=== PATIENT | male | born 1955 | race Hispanic/Latino ===

== ENCOUNTER → 2020-01-28 | Day surgery (SDC) | payer MEDICARE ==
[2020-01-24 11:48] LABS: BASOPHILS % 0.6 % (0.0-1.0); EOSINOPHILS # (AUTO) 0.2 (0.0-0.4); EOSINOPHILS % 2.1 % (0.0-6.0); HEMATOCRIT 41.6 % (38.2-49.6); HEMOGLOBIN 14.3 g/dL (14.0-18.0); LYMPHOCYTES # (AUTO) 1.5 (1.0-3.2); LYMPHOCYTES % 21.3 % (18.0-39.1); MEAN CORPUSCULAR HGB CONC 34.4 g/dL (31-35); MEAN CORPUSCULAR VOLUME 98.8 fL (81-99); MONOCYTES # (AUTO) 0.5 (0.2-0.8); MONOCYTES % 7.6 % (4.4-11.3); NEUTROPHILS # (AUTO) 4.8 (2.1-6.9); PLATELET COUNT 271 x10e3/uL (140-360); RED BLOOD COUNT 4.21 x10e6/uL (4.3-5.7); RED CELL DISTRIBUTION WIDTH 12.5 % (11.7-14.4)
--- NOTE | 2020-01-24 12:00 | NUR ---
Checked patient's temperature 98.1F via skin probe. Patient denies being out of the country or state in the at 14 days. Patient denies being around anyone who has been exposed or diagnosed with COVID-19 in the last 14 days. Patient denies fever, cough or new onset shortness of breath.
[2020-01-24 12:10] LABS: ALANINE AMINOTRANSFERASE 31 IU/L (0-55); ALBUMIN 3.6 g/dL (3.5-5.0); ALKALINE PHOSPHATASE 66 IU/L (40-150); ANION GAP 11.3 mmol/L (8-16); BLOOD UREA NITROGEN 13 mg/dL (7-26); BUN/CREATININE RATIO 13 (6-25); CALCIUM 9.5 mg/dL (8.4-10.2); CARBON DIOXIDE 32 mmol/L (22-29); CHLORIDE 101 mmol/L (98-107); CREATININE, SERUM 1.01 mg/dL (0.72-1.25); EST GLOMERULAR FILTRATION RATE > 60 ML/MIN (60-); GLUCOSE 341 mg/dL (74-118); POTASSIUM 4.3 mmol/L (3.5-5.1); SODIUM 140 mmol/L (136-145)
[~2020-01-28] VITALS: Ht 160 cm; Wt 68.0 kg
[2020-01-28] VITALS (14 sets, daily range): BP systolic 112–172; BP diastolic 60–77
[~2020-01-28] MED LIST: ACETAMINOPHEN500 M1 PO; ALPRAZOLAM 0.5 MG TAB ONE; ASPIR 8181 MG PO; ASPIRIN 325 MG TAB ONE; BIVALRIUDIN 250 MG/VIAL VIAL IV ONE; CLOPIDOGREL75 MG PO; DIPHENHYDRAMINE HCL 25 MG CAP ONE; FENTANYL CITRATE/PF 100MCG/2 ML INJ ONE; GABAPENTIN400 MG PO; HEPARIN SOD/SOD CHLORIDE 2,000 ML ONE; IOPAMIDOL 370 MG/ML 200 ML INFUS..BTL INJ ONE; LIDOCAINE HCL 2% LOCAL 20 ML VIAL ONE; LISINOPRIL10 MG PO; METFORMIN HCL500 MG PO; MIDAZOLAM HCL 2 MG/2 ML VIAL ONE; PRASUGREL 10 MG TAB ONE; REVATIO20 MG PO; SIMVASTATIN20 MG PO; SODIUM CHLORIDE 0.9% 1000ML 1,000 ML ONE; SODIUM CHLORIDE 0.9% 50ML 50 ML ONE
--- OUTSIDE RECORDS SUMMARY | 2020-01-28 11:09 | XMS REPORT | Continuity of Care Document ---
Author Author [facility] [email or web address] Address [address] [address] Phone Care Team Providers Care Boiler Water Tester Name Role Phone Leonardo Perez Unavailable Unavailable Allergies, Adverse Reactions, Alerts Substance Reaction Status No Known Allergies Active Medications Medication Instructions Dosage Effective Dates (start - stop) Status Comments Metformin 1000mg Tablet TAKE 1 TABLET BY ORAL ROUTE 2 TIMES EVERY DAY WITH MORNING AND EVENING MEALS 1000 MG - Active lisinopril 10 mg tablet take 1 tablet by oral route every day 10 MG - Active simvastatin 20 mg tablet TAKE (1) TABLET BY MOUTH EVERY EVENING. - Active Tresiba FlexTouch U-100 insulin 100 unit/mL (3 mL) subcutaneous pen Inject 25 units SQ once daily - Active gabapentin 300 mg capsule take 2 capsule by oral route 3 times every day 600 MG - Active sildenafil 25 mg tablet take 1 tablet by oral route every day as needed approximately 1 hour before sexual activity 25 MG - Active Accu-Chek Xuan Plus Meter test 3 times daily (E11.65; insulin dependent) - Active Accu-Chek Xuan Plus test strips test 3 times daily (E11.65; insulin-dependent) - Active aspirin 81 mg tablet,delayed release take 1 tablet by oral route every day 81 MG - Active Pen Needle 32 gauge x 5/32" inject 1 by subcutaneous route every day 1 - Active metformin 1,000 mg tablet take 1 tablet by oral route 2 times every day with morning and evening meals 1000 MG - No Longer Active Problems Condition Effective Dates (start - stop) Clinical Status Comments Dyslipidemia - Active Type II diabetes mellitus uncontrolled - Active Benign hypertension - Active Procedures Procedure Date No information Results Test Name Date and Time Measure Units Reference Range Abnormal Flag Status Comments No information Advance Directives Directive Yes / No Effective Date File Name No information Encounters Encounter Description Practice Location Reason(s) For Visit Diagnoses Date Provider Providers Copied on Encounter [facility], [address], [place], [place], [address], tel:[phone] [facility] Rafael Patterson. [address], [place], [place], [address]. tel:[phone] Referring Provider: Anu Campbell [address], [place], [place], [address]. tel:[phone] [facility], [address], [place], [place], [address], tel:[phone] [facility] Type 2 diabetes mellitus with hyperglycemiaEssential (primary) hypertensionHyperlipidemia, unspecifiedOther spondylosis w/ radiculopathy of lumbar regionMale erectile dysfunction, unspecified Rafael Patterson. [address], [address], [place], [place], [address]. tel:[phone] Referring Provider: Anu Campbell [address], [place], [place], [address]. tel:[phone] [facility], [address], [place], [place], [address], tel:[phone] [facility] Other spondylosis w/ radiculopathy of lumbar region Rafael Patterson. [address], [place], [place], [address]. tel:[phone] Referring Provider: Anu Campbell [address], [place], [place], [address]. tel:[phone] [facility], [address], [place], [place], [address], tel:[phone] [facility] Type 2 diabetes mellitus with hyperglycemiaOther spondylosis w/ radiculopathy of lumbar region Rafael Patterson. [address], [address], [place], [place], [address]. tel:[phone] Referring Provider: Leonardo Hall, [address], [place], [place], [address]. tel:[phone] [facility], [address], [place], [place], [address], tel:[phone] [facility] Major depressive disorder, single episode, unspecifiedAdjustment disorder, unspecifiedAcute stress reaction Maribell Khan. [address], [place], [place], [address]. tel:[phone] Referring Provider: Blanche Taf[address] [place] [address], [place], [place], [address]. tel:[phone] [facility], [address], [place], [place], [address], tel:[phone] [facility] Major depressive disorder, single episode, unspecifiedAdjustment disorder, unspecifiedAcute stress reaction Maribell Khan. [address], [place], [place], [address]. tel:[phone] Referring Provider: Joel [address], [place], [place], [address]. tel:[phone] [facility], [address], [place], [place], [address], tel:[phone] [facility] Type 2 diabetes mellitus with hyperglycemiaEssential (primary) hypertensionHyperlipidemia, unspecifiedBody mass index (BMI) 25.0- 25.9, adultSciatica, right sideDepression Rafael Patterson. [address], [place], [place], [address]. tel:[phone] Referring Provider: Anu Campbell [employer], [place], [place], [address]. tel:[phone] [facility], [address], [place], [place], [address], tel:[phone] [facility] Body mass index (BMI) 26.0-26.9, adultPain in leg [facility], [address], [place], [place], [address], tel:[phone] [facility] Body mass index (BMI) 25.0-25.9, adultType 2 diabetes mellitus with hyperglycemiaEssential (primary) hypertensionHyperlipidemia, unspecified Rafael Patterson. [address] [employer] [address], [place], [place], [address]. tel:[phone] Referring Provider: Moises Campbell [employer] [address], [place], [place], [address]. tel:[phone] [facility], [address], [place], [place], [address], tel:[phone] [facility] Type 2 diabetes mellitus with hyperglycemiaEssential (primary) hypertensionHyperlipidemia, unspecifiedEncounter for screening for cancer of prostate [facility], [address], [place], [place], [address], tel:[phone] [facility] Body mass index (BMI) 25.0-25.9, adultType 2 diabetes mellitus with hyperglycemiaEssential (primary) hypertension Family History Family Member Diagnosis Age At Onset Sister Cancer, breast Father Immunizations Vaccine Date Status Comments No information Payers Payer name Insurance type Covered alliance party ID Authorization(s) [facility] [id number] Social History Type Description Quantity Date Captured Comments Sex Male Vital Signs Date / Time: Height Weight BMI Pulse Rate Blood Pressure Temperature Respiratory Rate Body Surface Area Head Circumference BMI percentile Pulse Ox Inhaled Ox No information Chief Complaint And Reason For Visit No information Reason For Referral Reason For Referral No information Plan Of Treatment Date Type Action Status Goal Lifestyle education regarding diet completed Goal Lifestyle education regarding diet completed Goal Dietary management education, guidance, and counseling completed Goal Dietary management education, guidance, and counseling completed Referral Ordered: Referrals: Physical Therapy. Evaluate and treat ordered Referral Ordered: Ophthalmology (related to Type 2 diabetes mellitus with hyperglycemia) ordered Referral Ordered: Referrals: Ophthalmology. Evaluate and treat ordered Referral Ordered: Referrals: MRI. Evaluate and treat Appointment date/timeframe: 06/25/2019 ordered Referral Ordered: Referrals: Behavioral Health ordered History Of Present Illness Encounter Date Complaint History Of Present Illness No information Functional Status Date Functional Assessment No information Medications Administered Medication Instructions Dosage Effective Dates (start - stop) Status Comments No information Instructions Date Instruction Additional Information Encouraged blood sugar diary.Fasting glucose goals of 80-130 mg/dL; 2 hour post meal goals of less than 180 mg/dL Related to Type 2 diabetes mellitus with hyperglycemia If PT ineffective; he may call us for referral for interventional pain Increase Gabapentin 300mg 2 caps three times daily Related to Other spondylosis w/ radiculopathy of lumbar region Encouraged blood sugar diary.Fasting glucose goals of 80-130 mg/dL; 2 hour post meal goals of less than 180 mg/dL Related to Type 2 diabetes mellitus with hyperglycemia Gabapentin 300mg 1 cap every 8 hours (increased)Refer for MRI LS spine due to increased weaknessPT referralMay require ortho spine referral Related to Other spondylosis w/ radiculopathy of lumbar region Prescribed duloxetine 30 mg capsule, delayed release taken by mouth once a day Related to Depression LS spine XrayIncreased gabapentin 300 mg capsule from once daily to 2 times daily Related to Sciatica, right side Increase Tresiba FlexTouch U - 10o insulin 100 unit/mL (3mL) subcutaneous pen from 15 units once daily at night before bed to 20 units once daily at night before bedInstructed patient to continue blood sugar log and to inform the clinic of fasting glucose levels if abnormal Educated patient on better diabetic diet and exercise practices Encouraged blood sugar diary.Fasting glucose goals of 80-130 mg/dL; 2 hour post meal goals of less than 180 mg/dL Related to Type 2 diabetes mellitus with hyperglycemia Simvastatin 20mg at night Related to Hyperlipidemia, unspecified Lisinopril 10mg daily Related to Essential (primary) hypertension Giving encouragement to exercise Related to Body mass index (BMI) 25.0-25.9, adult Lifestyle education regarding diet Related to Body mass index (BMI) 25.0-25.9, adult Start trial of gabapentin OTC analgesicsHandout on neuropathy providedAdvise pt to schedule a medical visit to f/u for chronic issues LELE Related to Pain in leg Lifestyle education regarding diet Related to Body mass index (BMI) 26.0-26.9, adult Giving encouragement to exercise Related to Body mass index (BMI) 26.0-26.9, adult Slightly elevated Low sodium diet Related to Essential (primary) hypertension Insulin teaching today*Start Tresiba Pen 15 units SQ daily*stop Glipizide*continue Metformin 1000mg 1 tab twice daily Encouraged blood sugar diary.Fasting glucose goals of 80-130 mg/dL; 2 hour post meal goals of less than 180 mg/dL Related to Type 2 diabetes mellitus with hyperglycemia Dietary management education, guidance, and counseling Related to Body mass index (BMI) 25.0-25.9, adult Will increase lisinopril to 10 mg dailyWill get labsASA 81 mg dailyMonitor BP daily and logDiscussed appropriate BP parametersF/u in 4 weeks Related to Essential (primary) hypertension C/w simvastatinWill check lipid panel Related to Hyperlipidemia, unspecified C/w current medsWill get labsCounseled patient on importance of daily medication compliance Strict diabetic diet and daily exerciseAdvise to schedule appt w/ eye clinic for diabetic eye exam Diabetic foot care instructions givenF/u in 4 weeks Related to Type 2 diabetes mellitus with hyperglycemia Given RBS >500 and worsening RBS levels after getting 15 units of insulin (2-3 hours ago) - advise pt to go to ER BP fairly elevated, otherwise pt is clinically stable, but do not feel comfortable for him to drive on his ownPt contacted family member, [facility] f/u after ER visit Related to Type 2 diabetes mellitus with hyperglycemia Will further assess during ER/hospital f/u visit Related to Essential (primary) hypertension Dietary management education, guidance, and counseling Related to Body mass index (BMI) 25.0-25.9, adult Assessments Type Assessment Date No information Goals Health Concern Goal Type Priority Status Date No information Medical Equipment Description Device Andrews Device Identifier Effective Dates (start - stop) Status No information Mental Status Date Cognitive Assessment No information Health Concerns Observation Date No information Concern Status Date No information
--- OUTSIDE RECORDS SUMMARY | 2020-01-28 11:09 | XMS REPORT | Continuity of Care Document ---
Author Author [facility] Address Unknown Phone Unavailable Care Team Providers Care Emu Farmer Name Role Phone Leonardo Perez Unavailable Unavailable Allergies, Adverse Reactions, Alerts Substance Reaction Status No Known Allergies Active Medications Medication Instructions Dosage Effective Dates (start - stop) Status Comments lisinopril 10 mg tablet take 1 tablet by oral route every day 10 MG - Active simvastatin 20 mg tablet TAKE (1) TABLET BY MOUTH EVERY EVENING. - Active metformin 1,000 mg tablet take 1 tablet by oral route 2 times every day with morning and evening meals 1000 MG - Active Tresiba FlexTouch U-100 insulin 100 [...] subcutaneous route every day 1 - Active Problems Condition Effective Dates (start - [...] Diagnoses Date Provider Providers Copied on Encounter [facility], [address], [place], [place], [address], tel:[phone] [facility] Rafael Patterson. [address], [place], [place], [address]. tel:[phone] Referring Provider: Anu Campbell [address], [place], [place], [address]. tel:[phone] [facility], [address], [place], [place], [address], tel:[phone] [facility] Type 2 diabetes mellitus with hyperglycemiaEssential (primary) hypertensionHyperlipidemia, unspecifiedOther spondylosis w/ radiculopathy of lumbar regionMale erectile dysfunction, unspecified Rafael Patterson. [address], [place], [place], [address]. tel:[phone] Referring Provider: Anu Campbell [address], [place], [place], [address]. tel:[phone] [facility], [address], [place], [place], [address], tel:[phone] [facility] Other spondylosis w/ radiculopathy of lumbar region Rafael Patterson. [address], [place], [place], [address]. tel:[phone] Referring Provider: [address], [place], [place], [address]. tel:[phone] [facility], [address], [place], [place], [address], tel:[phone] [facility] Type 2 diabetes mellitus with hyperglycemiaOther spondylosis w/ radiculopathy of lumbar region Rafael Patterson. [address], [place], [place], [address]. tel:[phone] Referring Provider: Joel [address], [place], [place], [address]. tel:[phone] [facility], [address], [place], [place], [address], tel:[phone] [facility] Major depressive disorder, single episode, unspecifiedAdjustment disorder, unspecifiedAcute stress reaction Maribell Khan. [address], [place], [place], [address]. tel:[phone] Referring [facility]: [facility] [address], [place], [place], [address]. tel:[phone] [facility], [address], [place], [place], [address], tel:[phone] [facility] Major depressive disorder, single episode, unspecifiedAdjustment disorder, unspecifiedAcute stress reaction Maribell Khan. [address], [place], [place], [address]. tel:[phone] Referring Provider: Joel [address], [place], [place], [address]. tel:[phone] [facility], [address], [place], [place], [address], tel:[phone] [facility] Type 2 diabetes mellitus with hyperglycemiaEssential (primary) hypertensionHyperlipidemia, unspecifiedBody mass index (BMI) 25.0- 25.9, adultSciatica, right sideDepression Rafael Patterson. [address], [place], [place], [address]. tel:[phone] Referring Provider: Blanche [address], [place], [place], [address]. tel:[phone] [facility], [address], [place], [place], [address], tel:[phone] [facility] Body mass index (BMI) 26.0-26.9, adultPain in leg [facility], [address], [place], [place], [address], tel:[phone] [facility] Body mass index (BMI) 25.0-25.9, adultType 2 diabetes mellitus with hyperglycemiaEssential (primary) hypertensionHyperlipidemia, unspecified Rafael Patterson. [address] [facility] [address], [place], [place], [address]. tel:[phone] Referring Provider: Moises Campbell [address], [place], [place], [address]. tel:[phone] [facility], [address], [place], [place], [address], tel:[phone] [facility] Type 2 diabetes mellitus with hyperglycemiaEssential (primary) hypertensionHyperlipidemia, unspecifiedEncounter for screening for cancer of prostate [facility] [address], [place], [place], [address], tel:[phone] [facility] Body mass index (BMI) 25.0-25.9, adultType 2 diabetes mellitus with hyperglycemiaEssential (primary) hypertension Family History Family Member Diagnosis Age At Onset Sister Cancer, breast Father Immunizations Vaccine Date Status Comments No information Payers Payer name Insurance type Covered democrat ID Authorization(s) [facility] [id number] Social History Type Description Quantity Date Captured [...] to Type 2 diabetes mellitus with hyperglycemia Lisinopril 10mg daily Related to Essential (primary) hypertension Simvastatin 20mg at night Related to Hyperlipidemia, unspecified Giving encouragement to exercise Related to Body [...] to Body mass index (BMI) 25.0-25.9, adult C/w simvastatinWill check lipid panel Related to Hyperlipidemia, unspecified Will increase lisinopril to 10 mg dailyWill get labsASA 81 mg dailyMonitor BP daily and logDiscussed appropriate BP parametersF/u in 4 weeks Related to Essential (primary) hypertension C/w current medsWill get labsCounseled patient on [...] family member, states he will go to [facility] to f/u after ER visit Related to Type 2 diabetes mellitus with hyperglycemia Will further assess during ER/hospital f/u visit Related to Essential (primary) hypertension Dietary management education, guidance, and counseling Related to Body mass index (BMI) 25.0-25.9, adult Assessments Type Assessment Date No information Goals Health Concern Goal Type Priority Status Date No information Medical Equipment Description Device [place] Device Identifier Effective Dates (start - stop) Status No information Mental Status Date Cognitive Assessment No information Health Concerns Observation Date No information Concern Status Date No information
--- OUTSIDE RECORDS SUMMARY | 2020-01-28 11:09 | XMS REPORT | Summary of Care ---
Author Author [facility] - Health Organization [facility] - Health Address Unknown Phone Unavailable Care Team Providers Care Case Sealer Name Role Phone Pcp, Patient Does Not Have A PCP Reason for Referral * MRI/CAT Scan (Routine) Referred By Contact Referred To Contact Status Reason Specialty Diagnoses / Procedures Leonardo Hall [address] [address] Authorized Diagnostic Diagnoses Radiology Other spondylosis with radiculopathy, lumbar region P rocedures MR LUMBAR SPINE WO CONTRAST * MRI/CAT Scan (Routine) Referred By Contact Referred To Contact Status Reason Specialty Diagnoses / Procedures Leonardo Hall [address] [address] Authorized Diagnostic Diagnoses Radiology Other spondylosis with radiculopathy, lumbar region P rocedures MR LUMBAR SPINE WO CONTRAST Reason for Visit * MRI/CAT Scan (Routine) Referred By Contact Referred To Contact Status Reason Specialty Diagnoses / Procedures Leonardo Hall [address] [address] Authorized Diagnostic Diagnoses Radiology Other spondylosis with radiculopathy, lumbar region P rocedures MR LUMBAR SPINE WO CONTRAST Encounter Details Care Team Description Date Type Department Radiology [address] [place] [id number] Arrived 06/25/[address] [facility] Encounter [facility] [address] [place] [address] Allergies Not on Filedocumented as of this encounter (statuses as of 06/26/2019) Medications Not on filedocumented as of this encounter (statuses as of 06/26/2019) Active Problems Not on filedocumented as of this encounter (statuses as of 06/26/2019) Social History Date Tobacco Use Types Packs/Day Years Used Never Assessed Sex Assigned at Date Recorded Not on file Industry Job Start Date Occupation Not on file Not on file Not on file Travel End Travel History Travel Start No recent travel history available. documented as of this encounter Last Filed Vital Signs Not on filedocumented in this encounter Plan of Treatment Health Maintenance Due Date Last Done Comments HEPATITIS C (HCV) SCREEN 1954 DTaP,Tdap,and Td Vaccines 1973 (1 - Tdap) COLONOSCOPY 2004 Zoster Recombinant 2004 Vaccine (SHINGRIX) (1 of 2) INFLUENZA VACCINE (#1) 2019 PNEUMOCOCCAL 0-64 YEARS Aged Out No longer eligible based COMBINED SERIES on patient's age to complete this topic documented as of this encounter Procedures Comments Procedure Name Priority Date/Time Associated Diagnosis MR LUMBAR SPINE WO Routine 06/25/2019 Other spondylosis with CONTRAST 12:04 PM CDT radiculopathy, lumbar region documented in this encounter Results * MR LUMBAR SPINE WO CONTRAST (06/25/2019 12:04 PM CDT) Specimen Impressions Performed At Mild spondylosis in the lower lumbar spine with annular fissures at L4-L5 PACS/VR/DOSE and L5-S1. These may represent an independent source of back pain. No significant spinal canal stenosis or high-grade neural foraminal narrowing is present at any level Narrative Performed At * * * * * * * * ORIGINAL REPORT * * * * * * * * PACS/VR/DOSE MR LUMBAR SPINE WO CONTRAST HISTORY: Male 63 years Other spondylosis with radiculopathy, lumbar region COMPARISON: None TECHNIQUE: Multiplanar multi weighted imaging of the lumbar spine was obtained without IV contrast FINDINGS: The vertebral bodies are normal in height and in normal alignment. The conus terminates at the level of T12-L1. The cauda equina nerve roots are unremarkable. The background marrow signal is unremarkable. The intervertebral disc space heights are preserved. L1-L2: No significant spinal canal stenosis or neural foraminal narrowing L2-L3: No significant spinal canal stenosis or neural foraminal narrowing L3-L4: No significant spinal canal stenosis or neural foraminal narrowing L4-L5: A left far lateral protrusion with associated annular fissure result in no significant spinal canal stenosis and mild left neural foraminal narrowing L5-S1: A shallow right foraminal protrusion with associated large annular fissure results in no significant spinal canal stenosis or neural foraminal narrowing Procedure Note [facility], Radiant Results Inft User - 06/25/2019 12:21 PM CDT * * * * * * * * ORIGINAL REPORT * * * * * * * * MR LUMBAR SPINE WO CONTRAST HISTORY: Male 63 years Other spondylosis with radiculopathy, lumbar region COMPARISON: None TECHNIQUE: Multiplanar multi weighted imaging of the lumbar spine was obtained without IV contrast FINDINGS: The vertebral bodies are normal in height and in normal alignment. The conus terminates at the level of T12-L1. The cauda equina nerve roots are unremarkable. The background marrow signal is unremarkable. The intervertebral disc space heights are preserved. L1-L2: No significant spinal canal stenosis or neural foraminal narrowing L2-L3: No significant spinal canal stenosis or neural foraminal narrowing L3-L4: No significant spinal canal stenosis or neural foraminal narrowing L4-L5: A left far lateral protrusion with associated annular fissure result in no significant spinal canal stenosis and mild left neural foraminal narrowing L5-S1: A shallow right foraminal protrusion with associated large annular fissure results in no significant spinal canal stenosis or neural foraminal narrowing IMPRESSION Mild spondylosis in the lower lumbar spine with annular fissures at L4-L5 and L5-S1. These may represent an independent source of back pain. No significant spinal canal stenosis or high-grade neural foraminal narrowing is present at any level Performing Organization Address City/State/Zipcode Phone Number PACS/VR/DOSE documented in this encounter Visit Diagnoses Diagnosis Other spondylosis with radiculopathy, lumbar region documented in this encounter Insurance Type Payer Benefit Subscriber ID Effective Phone Address Plan / Dates Group O [facility] [id number] 2018-P [phone] [address] [employer] [facility] [id number] [place] [address] documented as of this encounter
--- OUTSIDE RECORDS SUMMARY | 2020-01-28 11:09 | XMS REPORT | Continuity of Care Document ---
Author Author [facility] Address [address] [address] Phone Care Team Providers Care Cardiovascular Rn Name Role Phone Leonardo Perez Unavailable Unavailable Allergies, Adverse Reactions, Alerts Substance Reaction Status No Known Allergies Active Medications Medication Instructions Dosage Effective Dates (start - stop) Status Comments BD U-F 32G 5/32in Pen Needle USAR SERGIO WAITE CAN. 1 - Active Metformin 1000mg Tablet TAKE 1 TABLET BY [...] by subcutaneous route every day 1 - No Longer Active Problems Condition Effective [...] Diagnoses Date Provider Providers Copied on Encounter [facility], [address], [place], [place], [id number], tel:[phone] [facility] Rafael Patterson. [address], [address], [place], [place], [address]. tel:[phone] Referring Provider: Anu Campbell [address], [place], [place], [address]. tel:[phone] [facility], [address], [place], [place], [address], tel:[phone] [facility] Rafael Patterson. [address], [address], [place], [place], [address]. tel:[phone] Referring Provider: Anu Campbell [address], [place], [place], [address]. tel:[phone] [facility], [address], [place], [place], [address], tel:[phone] [facility] Type 2 diabetes mellitus with hyperglycemiaEssential (primary) hypertensionHyperlipidemia, unspecifiedOther spondylosis w/ radiculopathy of lumbar regionMale erectile dysfunction, unspecified Rafael Patterson. [address], [address], [place], [place], [id number]. tel:[phone] Referring Provider: Anu Campbell [address], [place], [place], [address]. tel:[phone] [facility], [address], [place], [place], [address], [place] tel:[phone] [facility] Other spondylosis w/ radiculopathy of lumbar region Rafael Patterson. [address], [place], [place], [address]. tel:[phone] Referring Provider: Joel Campbell-Jame [address], [place], [place], [address]. tel:[phone] [facility], [address], [place], [place], [address], [place] tel:[phone] [facility] Type 2 diabetes mellitus with hyperglycemiaOther spondylosis w/ radiculopathy of lumbar region Rafael Patterson. [address], [place], [place], [address]. tel:[phone] Referring Provider: Joel Campbell-Jame Howard [address], [place], [place], [address]. tel:[phone] [facility], [address], [place], [place], [id number], [place] tel:[phone] [facility] Major depressive disorder, single episode, unspecifiedAdjustment disorder, unspecifiedAcute stress reaction Maribell Khan. [address], [place], [place], [address]. tel:[phone] Referring Provider: Blanche Taf[address], [place], [place], [address]. tel:[phone] [facility], [address], [place], [place], [address], [place] tel:[phone] [facility] Major depressive disorder, single episode, unspecifiedAdjustment disorder, unspecifiedAcute stress reaction Maribell Khan. [address], [place], [place], [address]. tel:[phone] Referring Provider: Erin Reyna [address], [place], [place], [address]. tel:[phone] [facility], [address], [place], [place], [address], tel:[phone] [facility] Type 2 diabetes mellitus with hyperglycemiaEssential (primary) hypertensionHyperlipidemia, unspecifiedBody mass index (BMI) 25.0- 25.9, adultSciatica, right sideDepression Rafael Patterson. [address], [place], [place], [address]. tel:[phone] Referring Provider: Anu Campbell [address], [place], [place], [address]. tel:[phone] [facility], [address], [place], [place], [address], tel:[phone] [facility] Body mass index (BMI) 26.0-26.9, adultPain in leg [facility], [address], [place], [address], tel:[phone] [facility] Body mass index (BMI) 25.0-25.9, adultType 2 diabetes mellitus with hyperglycemiaEssential (primary) hypertensionHyperlipidemia, unspecified Rafael Patterson. [address], [place], [place], [address]. tel:[phone] Referring Provider: Moises Campbell [address], [place], [place], [address]. tel:[phone] [facility], [address], [place], [place], [address], tel:[phone] [facility] Type 2 diabetes mellitus with hyperglycemiaEssential (primary) hypertensionHyperlipidemia, unspecifiedEncounter for screening for cancer of prostate [facility] [employer], [address], [place], [address], [place] tel:[phone] [facility] [employer] Body mass index (BMI) 25.0-25.9, adultType 2 diabetes mellitus with hyperglycemiaEssential (primary) hypertension Family History Family Member Diagnosis Age At Onset Sister Cancer, breast Father Immunizations Vaccine Date Status Comments No information Payers Payer name Insurance type Covered constitution party ID Authorization(s) [facility] [id number] Social History Type Description Quantity Date Captured [...] Other spondylosis w/ radiculopathy of lumbar region LS spine XrayIncreased gabapentin 300 mg capsule from once daily to 2 times daily Related to Sciatica, right side Prescribed duloxetine 30 mg capsule, delayed release taken by mouth once a day Related to Depression Increase Tresiba FlexTouch U - 10o insulin [...] issues LELE Related to Pain in leg Giving encouragement to exercise Related to Body mass index (BMI) 26.0-26.9, adult Lifestyle education regarding diet Related to Body mass index (BMI) 26.0-26.9, adult Insulin teaching today*Start Tresiba Pen 15 units SQ daily*stop Glipizide*continue Metformin 1000mg 1 tab twice daily Encouraged blood sugar diary.Fasting glucose goals of 80-130 mg/dL; 2 hour post meal goals of less than 180 mg/dL Related to Type 2 diabetes mellitus with hyperglycemia Slightly elevated Low sodium diet Related to Essential (primary) hypertension Dietary management education, guidance, and counseling Related to Body mass index (BMI) 25.0-25.9, adult C/w current medsWill get labsCounseled patient on importance of daily medication compliance Strict diabetic diet and daily exerciseAdvise to schedule appt w/ eye clinic for diabetic eye exam Diabetic foot care instructions givenF/u in 4 weeks Related to Type 2 diabetes mellitus with hyperglycemia Will increase lisinopril to 10 mg dailyWill get labsASA 81 mg dailyMonitor BP daily and logDiscussed appropriate BP parametersF/u in 4 weeks Related to Essential (primary) hypertension C/w simvastatinWill check lipid panel Related to Hyperlipidemia, unspecified Given RBS >500 and worsening RBS levels after getting 15 units of insulin (2-3 hours ago) - advise pt to go to ER BP fairly elevated, otherwise pt is clinically stable, but do not feel comfortable for him to drive on his ownPt contacted family member, [facility] Related to Type 2 diabetes mellitus with hyperglycemia Will further assess during ER/hospital f/u visit Related to Essential (primary) hypertension Dietary management education, guidance, and counseling Related to Body mass index (BMI) 25.0-25.9, adult Assessments Type Assessment Date No information Goals Health Concern Goal Type Priority Status Date No information Medical Equipment Description Device [place] Device Identifier Effective Dates (start - stop) Status No information Mental Status Date Cognitive Assessment No information Health Concerns Observation Date No information Concern Status Date No information
--- OUTSIDE RECORDS SUMMARY | 2020-01-28 11:09 | XMS REPORT ---
Author [facility] Address Unknown Phone Unavailable Care Team Providers Care Med Surg Nurse Name Role Phone Unavailable Unavailable Payers Payer Name Policy Type Policy Number Effective Date Expiration Date Problems This patient has no known problems. Allergies, Adverse Reactions, Alerts Allergy Name Allergy Type Status Severity Reaction(s) Onset Date Inactive Date Treating Clinician Comments No Known Allergies DA Active U 2018-10-31 00:00:00 No Known Intolerances DA Active U 2009-06-25 00:00:00 Medications This patient has no known medications. Encounters Start Date/Time End Date/Time Encounter Type Admission Type Attending Clinicians Care Facility Care Department Encounter ID 2019-09-23 07:36:00 2019-09-23 07:36:00 Outpatient [facility] 7500 Results Test Description Test Time Test Comments Text Results Atomic Results Result Comments GLUBED 2018-10-31 19:33:00 GLUBED (test code=GLUBED) 261 mg/dL 70-110 BASIC METABOLIC [id number] 18:15:00* Test Item Value Reference Range Comments SODIUM (test code=NA) 136 mmol/l 134.0-147.0 POTASSIUM (test code=K) 3.8 mmol/L 3.6-5.2 CHLORIDE (test code=CL) 98 mmol/l 98.0-107.0 CARBON DIOXIDE (test code=CO2) 29.4 mmol/l 21.0-33.0 ANION GAP (test code=GAP) 12.4 0-20 GLUCOSE (test code=GLU) 418 mg/dl 70.0-110.0 BLOOD UREA NITROGEN (test code=BUN) 20 mg/dl 7.0-18.0 CREATININE (test code=CREAT) 0.99 mg/dL 0.60-1.30 GFR NON BLACK (test code=GFRNONBLACK) 81 mL/min 80-90 GFR BLACK (test code=GFRBLACK) 98 mL/min 97-109 CALCIUM (test code=CA) 9.6 mg/dl 8.0-10.5 HEPATIC FUNCTION PANEL [id number] 18:15:00* Test Item Value Reference Range Comments TOTAL PROTEIN (test code=PROT) 8.3 GM/DL 6.0-8.1 ALBUMIN (test code=ALB) 3.9 gm/dL 3.2-4.7 BILIRUBIN TOTAL (test code=BILT) 0.3 mg/dl 0.0-1.0 BILIRUBIN DIRECT (test code=BILD) 0.1 mg/dl 0.0-0.3 SGOT/AST (test code=AST) 11 Units/L 15.0-37.0 SGPT/ALT (test code=ALT) 27 Units/L 12.0-78.0 ALKALINE PHOSPHATASE TOTAL (test code=ALKP) 92 Units/L 50.0-136.0 [id number] 18:15:00* Test Item Value Reference Range Comments LIPASE (test code=LIP) 212 Units/L 65.0-230.0 URINALYSIS [id number] 18:08:00* Test Item Value Reference Range Comments UA COLOR (test code=COLU) STRAW UA APPEARANCE (test code=APPU) CLEAR UA GLUCOSE DIPSTICK (test code=DGLUU) 1000 mg/dl mg/dl NORMAL UA BILIRUBIN DIPSTICK (test code=BILU) NEGATIVE mg/dL NEGATIVE UA KETONE DIPSTICK (test code=KETU) 5 mg/dl mg/dl NEGATIVE UA SPECIFIC GRAVITY (test code=SGU) 1.015 1.000-1.030 UA BLOOD DIPSTICK (test code=SUSAN) NEGATIVE Hermes/micL NEGATIVE UA PH DIPSTICK (test code=HARESH) 5.0 5.0-9.0 UA PROTEIN DIPSTICK (test code=PROU) NEGATIVE mg/dl NEGATIVE UA UROBILINIOGEN DIPSTICK (test code=URO) NORMAL mg/dl NORMAL UA NITRITE DIPSTICK (test code=TG) NEGATIVE NEGATIVE UA LEUKOCYTE ESTERASE DIPSTICK (test code=LEUU) NEGATIVE Won/micL NEGATIVE UA WBC (test code=WBCU) 0-2 WBC/HPF NONE UA RBC (test code=RBCU) 0-2 RBC/HPF 0-3 UA EPITHELIAL CELLS (test code=EPIU) 0-3 EPI/HPF 0-3 UA BACTERIA (test code=BACU) TRACE NONE Specimen comments: Clean CatchBASIC METABOLIC [id number] 18:06:00* Test Item Value Reference Range Comments SODIUM (test code=NA) 136 mmol/l 134.0-147.0 POTASSIUM (test code=K) 3.8 mmol/L 3.6-5.2 CHLORIDE (test code=CL) 98 mmol/l 98.0-107.0 CARBON DIOXIDE (test code=CO2) 29.4 mmol/l 21.0-33.0 ANION GAP (test code=GAP) 12.4 0-20 GLUCOSE (test code=GLU) mg/dl 70.0-110.0 BLOOD UREA NITROGEN (test code=BUN) mg/dl 7.0-18.0 CREATININE (test code=CREAT) mg/dL 0.60-1.30 GFR NON BLACK (test code=GFRNONBLACK) mL/min 80-90 GFR BLACK (test code=GFRBLACK) mL/min 97-109 CALCIUM (test code=CA) mg/dl 8.0-10.5 HEPATIC FUNCTION PANEL [id number] 18:06:00* Test Item Value Reference Range Comments TOTAL PROTEIN (test code=PROT) gm/dL 6.4-8.2 ALBUMIN (test code=ALB) gm/dl 3.2-4.7 BILIRUBIN TOTAL (test code=BILT) mg/dl 0.0-1.0 BILIRUBIN DIRECT (test code=BILD) mg/dl 0.0-0.3 SGOT/AST (test code=AST) Units/L 15.0-37.0 SGPT/ALT (test code=ALT) Units/L 12.0-78.0 ALKALINE PHOSPHATASE TOTAL (test code=ALKP) Units/L 50.0-136.0 [id number] 18:06:00* Test Item Value Reference Range Comments LIPASE (test code=LIP) Units/L 65.0-230.0 CBC W/O [id number] 18:02:00* Test Item Value Reference Range Comments WHITE BLOOD CELL (test code=WBC) 7.8 K/mm3 4.5-11.0 RED BLOOD CELL (test code=RBC) 4.90 M/mm3 4.40-5.90 HEMOGLOBIN (test code=HGB) 16.4 gm/dL 13.0-17.0 HEMATOCRIT (test code=HCT) 47.4 % 36.0-48.0 MEAN CELL VOLUME (test code=MCV) 96.7 UM3 80.0-94.0 MEAN CELL HGB (test code=MCH) 33.5 UUG 25.5-32.5 MEAN CELL HGB CONCETRATION (test code=MCHC) 34.6 gm/dL 29.0-35.5 RED CELL DISTRIBUTION WIDTH (test code=RDW) 11.8 % 11.5-15.0 PLATELET COUNT (test code=PLT) 279 K/mm3 150-400 MEAN PLATELET VOLUME (test code=MPV) 10.4 fl 7.4-10.4 URINALYSIS [id number] 17:58:00* Test Item Value Reference Range Comments UA COLOR (test code=COLU) UA APPEARANCE (test code=APPU) UA GLUCOSE DIPSTICK (test code=DGLUU) 1000 mg/dl mg/dl NORMAL UA BILIRUBIN DIPSTICK (test code=BILU) NEGATIVE mg/dL NEGATIVE UA KETONE DIPSTICK (test code=KETU) 5 mg/dl mg/dl NEGATIVE UA SPECIFIC GRAVITY (test code=SGU) 1.015 1.000-1.030 UA BLOOD DIPSTICK (test code=SUSAN) NEGATIVE Hermes/micL NEGATIVE UA PH DIPSTICK (test code=HARESH) 5.0 5.0-9.0 UA PROTEIN DIPSTICK (test code=PROU) NEGATIVE mg/dl NEGATIVE UA UROBILINIOGEN DIPSTICK (test code=URO) NORMAL mg/dl NORMAL UA NITRITE DIPSTICK (test code=TG) NEGATIVE NEGATIVE UA LEUKOCYTE ESTERASE DIPSTICK (test code=LEUU) NEGATIVE Won/micL NEGATIVE UA WBC (test code=WBCU) WBC/HPF NONE UA RBC (test code=RBCU) RBC/HPF 0-3 UA EPITHELIAL CELLS (test code=EPIU) EPI/HPF 0-3 UA BACTERIA (test code=BACU) NONE Specimen comments: Clean CatchACETONE [id number] 17:58:00* Test Item Value Reference Range Comments ACETONE BLOOD (test code=ACETB) NEGATIVE NEGATIVE
--- NOTE | 2020-01-28 14:51 | NUR ---
1451p Received pt to room #10,bedside report received from JOANN Eagle. Alert oriented and appropriate, PERRLA, respirations even and unlabored to room air. Pulses x2 present upper ext.Pedal pulses PT/DP weak Doppler Cap fill brisk < 3 sec. TR band down ok at 1800pm .No gross issues pain, pallor,pressure or dysrhythmia. Skin warm and dry integrity appears D/I. IV 20g to left angio-max ,infusing presents healthy w/o s/s of infiltration or complaint. Abdomen soft and supple. pt offered toileting, denies need to urinate or defecate. No personal affects with patient. Family so at bedside. Pt and family verbalizes understanding of POC. Currently w/o complaint of pain or need. ds/rn
--- NOTE | 2020-01-28 18:00 | NUR ---
1800pm RADIAL Compression removal: Initial Cuff volume 12 cc 1800p -2cc Removed No hematoma/bleeding noted with normal neurovascular function. 1815p -5cc Removed No hematoma/ bleeding noted with normal neurovascular function. 1830p -5 cc Removed No hematoma/bleeding noted with normal neurovascular function. Air removal completed. Stasis achieved sterile 2x2,Tegaderm, Coban dressing No hematoma, bleeding noted with normal neurovascular function. Wrist splint in place. Pt instructed on POC. Ds/Rn
--- NOTE | 2020-01-28 19:45 | NUR ---
1944 sit up to dress Family at bedside. No gross issues pain,pallor,pressure or dysrhythmia. Pt meets DC criteria. Rt Arm assessed for s/s of complication and presence of hematoma. Skin warm, dry, no discolor, and pulses present. IV removed from left hand. Distal tip appears intact. VS WNL. Pt denies pain, sob, or need at this time. Family at bedside. Review of discharge paperwork and follow up instructions. verbalized understanding. Pt to wheelchair and transported to front of hospital. Transferred to private vehicle under own strength w/o incident with DC paperwork in hand. - emmie/rn
--- NOTE | 2020-01-28 20:37 | Operative Report ---
DATE OF PROCEDURE: 01/28/2020 SURGEON: Nasir Gar MD INDICATIONS: Coronary artery disease, abnormal stress test, angina, unstable angina,urgent procedures two severe claudication, critical limb ischemia both lower extremities with lifestyle limiting claudication. PROCEDURES PERFORMED: 1. Abdominal aorta catheter placement, abdominal aortogram. 2. Bilateral lower extremity angiograms, bilateral lower extremity 3rd order catheter placement from the right femoral artery to the left superficial femoral artery, bilateral extremity angiograms. 3. Left heart catheterization, selective coronary angiography. 4. Stent placement to the mid left anterior descending artery. 5. Conscious sedation administration. Hemodynamic and neurological monitoring and recovery for a 65 minutes monitoring and supervision by physician. COMPLICATIONS: None. RECOMMENDATIONS: Dual antiplatelet therapy for life, staged intervention of the right coronary artery as well as bilateral femoral arteries. ESTIMATED BLOOD LOSS: Minimal. DESCRIPTION OF PROCEDURE: Access obtained in the right radial artery, a 6-Spanish sheath was placed. The patient received Angiomax and oral Effient and aspirin for anticoagulation. The coronary angiography demonstrated 70% proximal right coronary artery in-stent restenosis. Distally the vessel had 90% stenosis. Left main distal 50% stenosis. Ostial circumflex and left anterior descending arteries 50% stenosis. Circumflex, mild disease. Mid left anterior descending artery 80% stenosis. The catheter then advanced into the abdominal aorta. Abdominal aortogram demonstrated mild disease of the abdominal aorta and iliacs bilaterally. Bilateral femoral arteries 80% to 90% stenosis, three-vessel runoff bilaterally. A decision was made to intervene on the left anterior descending artery. The left main was cannulated using a 6-Spanish guiding catheter. Short Runthrough wire was advanced for support. Primary stent 2.5/16 mm synergy stent at 14 atmospheres, post dilatation of the proximal half of the stent with 2.5 mm 24 atmospheres. Excellent end result, less than 10% residual stenosis, RADHA-3 flow. No complications. Wire and guide sheath removed. TR band applied. The patient discharged to home same day. Nasir Gar MD KSB/MODL /[id number]
== END | disposition home or self-care (01) ==
LOC: CATH LAB 11:06
PROVIDERS: ATTEND Internal Medicine Interventional Cardiology
DX: I25.110 Atherosclerotic heart disease of native coronary artery with unstable angina pectoris (principal); I70.213 Atherosclerosis of native arteries of extremities with intermittent claudication, bilateral legs; R94.39 Abnormal result of other cardiovascular function study; R09.89 Other specified symptoms and signs involving the circulatory and respiratory systems; E78.00 Pure hypercholesterolemia, unspecified; E11.3519 Type 2 diabetes mellitus with proliferative diabetic retinopathy with macular edema, unspecified eye; Z01.812 Encounter for preprocedural laboratory examination; Z79.82 Long term (current) use of aspirin; Z79.84 Long term (current) use of oral hypoglycemic drugs
CPT/HCPCS: 36247; 75625; 75716; 76937; 93454; C9600; 36415; 80053; 85025; 92928; 99152; 99153; C1725; C1769; C1874; C1887; J0583; J2001; J2250; J3010; J7030; Q9967

== ENCOUNTER 2020-02-07 11:07 | Observation (INO) | payer MEDICARE, OTHER ==
[2020-02-05 10:57] LABS: BASOPHILS % 0.5 % (0.0-1.0); EOSINOPHILS # (AUTO) 0.1 (0.0-0.4); EOSINOPHILS % 1.5 % (0.0-6.0); HEMATOCRIT 42.3 % (38.2-49.6); HEMOGLOBIN 14.7 g/dL (14.0-18.0); LYMPHOCYTES # (AUTO) 1.9 (1.0-3.2); LYMPHOCYTES % 21.7 % (18.0-39.1); MEAN CORPUSCULAR HEMOGLOBIN 33.9 pg (28-32); MEAN CORPUSCULAR HGB CONC 34.8 g/dL (31-35); MEAN CORPUSCULAR VOLUME 97.7 fL (81-99); MONOCYTES # (AUTO) 0.7 (0.2-0.8); MONOCYTES % 7.8 % (4.4-11.3); NEUTROPHILS % 67.8 % (38.7-80.0); PLATELET COUNT 277 x10e3/uL (140-360); RED BLOOD COUNT 4.33 x10e6/uL (4.3-5.7); RED CELL DISTRIBUTION WIDTH 12.1 % (11.7-14.4)
[2020-02-05 11:15] LABS: ALANINE AMINOTRANSFERASE 15 IU/L (0-55); ALBUMIN 3.8 g/dL (3.5-5.0); ALKALINE PHOSPHATASE 66 IU/L (40-150); ANION GAP 14.3 mmol/L (8-16); BLOOD UREA NITROGEN 20 mg/dL (7-26); BUN/CREATININE RATIO 21 (6-25); CALCIUM 9.7 mg/dL (8.4-10.2); CARBON DIOXIDE 29 mmol/L (22-29); CHLORIDE 96 mmol/L (98-107); CREATININE, SERUM 0.94 mg/dL (0.72-1.25); EST GLOMERULAR FILTRATION RATE > 60 ML/MIN (60-); GLUCOSE 236 mg/dL (74-118); POTASSIUM 4.3 mmol/L (3.5-5.1); SODIUM 135 mmol/L (136-145)
[2020-02-07] VITALS (14 sets, daily range): BP systolic 107–138; BP diastolic 61–80
[~2020-02-07 11:07] MED LIST changes: -ALPRAZOLAM 0.5 MG TAB ONE; -ASPIRIN 325 MG TAB ONE; -BIVALRIUDIN 250 MG/VIAL VIAL IV ONE; -DIPHENHYDRAMINE HCL 25 MG CAP ONE; -FENTANYL CITRATE/PF 100MCG/2 ML INJ ONE; -HEPARIN SOD/SOD CHLORIDE 2,000 ML ONE; -IOPAMIDOL 370 MG/ML 200 ML INFUS..BTL INJ ONE; -LIDOCAINE HCL 2% LOCAL 20 ML VIAL ONE; -MIDAZOLAM HCL 2 MG/2 ML VIAL ONE; -PRASUGREL 10 MG TAB ONE; -SODIUM CHLORIDE 0.9% 1000ML 1,000 ML ONE; -SODIUM CHLORIDE 0.9% 50ML 50 ML ONE
[2020-02-07] MEDS ORDERED: DIPHENHYDRAMINE HCL 25 MG CAP ONE (12:55)
[2020-02-07] MEDS ORDERED: ALPRAZOLAM 0.5 MG TAB ONE (12:55)
[2020-02-07] MEDS ORDERED: LIDOCAINE HCL 2% LOCAL 20 ML VIAL ONE (13:56)
[2020-02-07] MEDS ORDERED: MIDAZOLAM HCL 2 MG/2 ML VIAL ONE (13:56)
[2020-02-07] MEDS ORDERED: FENTANYL CITRATE/PF 100MCG/2 ML INJ ONE (13:56)
[2020-02-07] MEDS ORDERED: HEPARIN SOD/SOD CHLORIDE 2,000 ML ONE (13:57)
[2020-02-07] MEDS ORDERED: SODIUM CHLORIDE 0.9% 1000ML 1,000 ML ONE (13:57)
[2020-02-07] MEDS ORDERED: IOPAMIDOL 370 MG/ML 200 ML INFUS..BTL INJ ONE (13:57)
[2020-02-07] MEDS ORDERED: BIVALRIUDIN 250 MG/VIAL VIAL IV ONE (14:00)
[2020-02-07] MEDS ORDERED: ASPIRIN 325 MG TAB ONE (14:01)
[2020-02-07] MEDS ORDERED: SODIUM CHLORIDE 0.9% 50ML 50 ML ONE (14:01)
[2020-02-07] MEDS ORDERED: PRASUGREL 10 MG TAB ONE (14:01)
--- NOTE | 2020-02-07 14:56 | NUR ---
1456 Received pt to room #10,bedside report received from JOANN Page. Alert oriented and appropriate, PERRLA, respirations even and unlabored to room air. Pulses x2 upper extremities equal and strong. Pedal pulses PT/DP X4 doppler and marked. Cap fill brisk < 3 sec. Rt Sheath intact No gross issues pain,pressure,pallor hematoma or dysrhythmia. Skin warm and dry integrity appears D/I. IV 20g to left hand D/I presents healthy w/o s/s of infiltration or complaint. Abdomen soft and supple. pt offered toileting, denies need to urinate or defecate. No personal affects with patient. Family at bedside. Pt and family verbalizes understanding of POC. Currently w/o complaint of pain or need. ds/rn
[2020-02-07] MEDS ORDERED: MORPHINE SULFATE INJ 4 MG/ML INJ 1ML IV PRN (15:00)
[2020-02-07] MEDS ORDERED: ACETAMINOPHEN 325 MG TAB PO PRN ×2 (15:00)
[2020-02-07] MEDS ORDERED: ONDANSETRON HCL INJ 2MG/ML 2ML 2 MG/ML VIAL IV PRN (15:00)
[2020-02-07] MEDS ORDERED: HYDROCODONE/APAP 5MG-325MG TAB PO PRN (15:00)
[2020-02-07] MEDS ORDERED: ZOLPIDEM TARTRATE 5 MG TAB PO PRN (15:00)
[2020-02-07] MEDS ORDERED: SILDENAFIL CITRATE 20 MG TAB PO SCH (15:00)
--- NOTE | 2020-02-07 16:00 | NUR ---
1600 received tele observation room 105 awaiting sheath pull. Tele bx #13 ready,
--- NOTE | 2020-02-07 17:15 | NUR ---
1715 Keesha Rn at bedside on standby successful sheath pull with 20min held and d stat dressing applied No gross issues pain,pallor,pressure or dysrhythmia.Down time 2400am called report to Keesha on MS1 rm 105 and sequentially transferred with telebox#3 and RN escort. Face to face report RN receiving aware of orders .Site w/o oozing ,no hematoma dressing dry and intact PPx4 doppler only (MDaware). 1715 [place] 70 Bp 116/75 100%Ra NSR 1720 [place] 74 Bp 129/73 100%Ra NSR 1725 AZ 73 Bp 117/78 100%Ra NSR 1735 [place] 72 Bp 120/72 100%Ra NSR 1745 Transfer completed left pt with RN at bedside, side rails up and call light aware of importance of bedrest till midnight Has am labs and possible DC in am Son /Shamar has copy of diagram of heart and stent card. ds/rn
--- NOTE | 2020-02-07 18:33 | NUR ---
PATIENT ARRIVED TO FLOOR AT APPROXIMATELY 1818. AAOX3. ACYANOTIC. RESTING IN SUPINE POSITION. NO DISTRESS NOTED. DRESSING NOTED TO RIGHT GROIN AREA. NO BLEEDING NOTED, NO HEMATOMA NOTED IN THAT AREA. BED LOW. SIDE RAILS UP X2. CALL LIGHT IN REACH. INSTRUCTED PATIENT TO LAY FLAT AND REFRAIN FROM BENDING RIGHT LEG. VERBALIZED UNDERSTANDING.
[2020-02-07] MEDS ORDERED: METFORMIN HCL 500 MG TAB PO SCH (18:45)
[2020-02-07] MEDS ORDERED: SIMVASTATIN 20 MG TAB PO SCH (21:00)
--- NOTE | 2020-02-07 21:11 | Operative Report ---
DATE OF PROCEDURE: 02/07/2020 SURGEON: Nasir Gar MD INDICATIONS: Coronary artery disease, unstable angina, staged intervention. PROCEDURES PERFORMED: 1. Left heart catheterization, selective coronary angiography. 2. PTCA and stent placement of the proximal mid and distal right coronary artery. 3. Conscious sedation administration, hemodynamic neurological monitoring in recovery by laboratory specialist RN and supervision by 65 minutes. COMPLICATIONS: None. RECOMMENDATIONS: Dual antiplatelet therapy for life. BLOOD LOSS: Minimal. DESCRIPTION OF PROCEDURE: Access obtained in the right femoral artery. A 6-Moroccan sheath was placed. The right coronary artery was cannulated using an AL1 side-hole 6-Moroccan guiding catheter. The patient received intravenous Angiomax, oral aspirin, and prasugrel for anticoagulation. 90% stenosis of the proximal and distal right coronary artery is noted. Patent stent in the mid right coronary artery. Short run-through wire was advanced for support balloon dilatation. The 2.5 mm balloon following which three overlapping 2.5 x 20, 2.5 x 20 and three 0 x 16 mm Synergy stents were deployed at 18-24 atmospheres. Excellent end result, less than 10% residual stenosis, RADHA-3 flow. No complications. Wire and guide were removed. Sheath secured in place for removal under manual pressure. The patient was observed in the hospital overnight. Nasir Gar MD KSB/MODL /[id number]
--- NOTE | 2020-02-07 21:35 | NUR ---
PATIENT IS RESTING IN BED AOX3, NO SIGNS OF DISTRESS NOTED. IV FLUIDS ARE RUNNING AT ORDERED RATE AND PATIENT VOICES PAIN AT A LEVEL OF 2 AND DID NOT REQUEST MEDICATION. PATIENT LYING DOWN STRAIGHT AND FLAT ORDERED BY PHYSICIAN DUE TO PREVIOUS HEART CATH. PATIENT AWARE THAT HE IS TO LAY FLAT BY MIDNIGHT. BED IS IN LOWEST POSITION, BOTH SIDE RAILS ARE UP, CALL LIGHT WITHIN EASY REACH, WILL CONTINUE TO MONITOR. Addendum: 02/08/20 at 0244 by Etienne Hensley RN NO BLOODY DRAINAGE NOTED ON DRESSING TO RIGHT GROIN FROM HEART CATH PROCEDURE.
[2020-02-07] MEDS: SODIUM CHLORIDE 0.9% 1000ML 1,000 ML IV SCH (21:37)
[2020-02-07] MEDS: GABAPENTIN 400 MG CAP PO SCH (21:37)
[2020-02-07] MEDS ORDERED: METFORMIN HCL 500 MG TAB PO ONE (22:00)
[2020-02-07] MEDS ORDERED: DEXTROSE 50% SYRINGE 50 ML IV PRN (22:30)
[2020-02-07] MEDS: INSULIN LISPRO 100 UNIT/1 ML 3ML VIAL SQ SCH (22:30)
[2020-02-08] VITALS: BP 109/63
[2020-02-08 04:00] VITALS: BP 102/65
[2020-02-08 05:38] LABS: BASOPHILS % 0.4 % (0.0-1.0); EOSINOPHILS # (AUTO) 0.1 (0.0-0.4); EOSINOPHILS % 1.2 % (0.0-6.0); HEMATOCRIT 37.2 % (38.2-49.6); HEMOGLOBIN 12.7 g/dL (14.0-18.0); LYMPHOCYTES # (AUTO) 1.8 (1.0-3.2); LYMPHOCYTES % 16.8 % (18.0-39.1); MEAN CORPUSCULAR HEMOGLOBIN 33.5 pg (28-32); MEAN CORPUSCULAR HGB CONC 34.1 g/dL (31-35); MEAN CORPUSCULAR VOLUME 98.2 fL (81-99); MONOCYTES # (AUTO) 0.8 (0.2-0.8); MONOCYTES % 7.4 % (4.4-11.3); NEUTROPHILS # (AUTO) 8.1 (2.1-6.9); NEUTROPHILS % 73.8 % (38.7-80.0); PLATELET COUNT 254 x10e3/uL (140-360); RED BLOOD COUNT 3.79 x10e6/uL (4.3-5.7); RED CELL DISTRIBUTION WIDTH 11.9 % (11.7-14.4)
[2020-02-08 06:07] LABS: ANION GAP 10.9 mmol/L (8-16); BLOOD UREA NITROGEN 10 mg/dL (7-26); BUN/CREATININE RATIO 13 (6-25); CALCIUM 8.7 mg/dL (8.4-10.2); CARBON DIOXIDE 27 mmol/L (22-29); CHLORIDE 106 mmol/L (98-107); CREATININE, SERUM 0.79 mg/dL (0.72-1.25); EST GLOMERULAR FILTRATION RATE > 60 ML/MIN (60-); GLUCOSE 104 mg/dL (74-118); POTASSIUM 3.9 mmol/L (3.5-5.1); SODIUM 140 mmol/L (136-145)
[2020-02-08] MEDS: INSULIN LISPRO 100 UNIT/1 ML 3ML VIAL SQ SCH ×2 (07:30→11:30)
[2020-02-08] MEDS: SODIUM CHLORIDE 0.9% 1000ML 1,000 ML IV SCH (07:53)
[2020-02-08 07:55] VITALS: BP 117/64
[2020-02-08] MEDS ORDERED: ASPIRIN 81 MG CHEW TAB PO SCH (09:00)
[2020-02-08] MEDS ORDERED: CLOPIDOGREL BISULFATE 75 MG TAB PO SCH (09:00)
[2020-02-08] MEDS ORDERED: LISINOPRIL 10 MG TAB PO SCH (09:00)
[2020-02-08 09:16] VITALS: BP 117/64
[2020-02-08] MEDS: GABAPENTIN 400 MG CAP PO SCH ×2 (09:16→14:57)
[2020-02-08 11:48] VITALS: BP 114/62
[2020-02-10] MEDS ORDERED: METFORMIN HCL 500 MG TAB PO SCH (08:00)
[2020-03-03] MEDS ORDERED: SILDENAFIL CITR25 MG PO (12:37)
[2020-03-03] MEDS ORDERED: ATORVASTATIN CA20 MG PO (12:37)
== END 2020-02-08 14:57 | disposition home or self-care (01) ==
LOC: CATH LAB 11:07 → CATH LAB V 14:47 → MED/SURG 18:20
PROVIDERS: ADMIT Internal Medicine Interventional Cardiology; ATTEND Internal Medicine Interventional Cardiology
DX: I25.110 Atherosclerotic heart disease of native coronary artery with unstable angina pectoris (principal); E78.00 Pure hypercholesterolemia, unspecified; E11.3599 Type 2 diabetes mellitus with proliferative diabetic retinopathy without macular edema, unspecified eye; E11.51 Type 2 diabetes mellitus with diabetic peripheral angiopathy without gangrene; Z79.4 Long term (current) use of insulin; Z01.812 Encounter for preprocedural laboratory examination; Z11.8 Encounter for screening for other infectious and parasitic diseases
CPT/HCPCS: 93458; C9600; 36415; 80048; 80053; 82948; 85025; 87635; 92928; 93454; 99152; 99153; C1725; C1769; C1874; G0378; J0583; J2001; J2250; J3010; J7030; Q9967

== ENCOUNTER → 2020-03-03 | Day surgery (SDC) | payer MEDICARE, OTHER ==
[2020-02-27 12:16] LABS: BASOPHILS % 0.5 % (0.0-1.0); EOSINOPHILS # (AUTO) 0.2 (0.0-0.4); EOSINOPHILS % 2.3 % (0.0-6.0); HEMATOCRIT 40.1 % (38.2-49.6); HEMOGLOBIN 13.7 g/dL (14.0-18.0); LYMPHOCYTES # (AUTO) 2.1 (1.0-3.2); LYMPHOCYTES % 26.6 % (18.0-39.1); MEAN CORPUSCULAR HEMOGLOBIN 33.4 pg (28-32); MEAN CORPUSCULAR HGB CONC 34.2 g/dL (31-35); MEAN CORPUSCULAR VOLUME 97.8 fL (81-99); MONOCYTES # (AUTO) 0.6 (0.2-0.8); MONOCYTES % 7.6 % (4.4-11.3); NEUTROPHILS # (AUTO) 4.9 (2.1-6.9); NEUTROPHILS % 62.6 % (38.7-80.0); PLATELET COUNT 267 x10e3/uL (140-360); RED CELL DISTRIBUTION WIDTH 11.9 % (11.7-14.4)
[2020-02-27 12:27] LABS: ALANINE AMINOTRANSFERASE 21 IU/L (0-55); ALBUMIN 3.8 g/dL (3.5-5.0); ALKALINE PHOSPHATASE 71 IU/L (40-150); ANION GAP 14.2 mmol/L (8-16); BLOOD UREA NITROGEN 15 mg/dL (7-26); BUN/CREATININE RATIO 19 (6-25); CALCIUM 9.7 mg/dL (8.4-10.2); CARBON DIOXIDE 26 mmol/L (22-29); CHLORIDE 103 mmol/L (98-107); CREATININE, SERUM 0.79 mg/dL (0.72-1.25); EST GLOMERULAR FILTRATION RATE > 60 ML/MIN (60-); GLUCOSE 106 mg/dL (74-118); POTASSIUM 4.2 mmol/L (3.5-5.1); SODIUM 139 mmol/L (136-145)
[2020-03-03] VITALS (10 sets, daily range): BP systolic 101–120; BP diastolic 47–77
[~2020-03-03] VITALS: Ht 160 cm; Wt 68.5 kg
[~2020-03-03] MED LIST changes: +ALPRAZOLAM 0.5 MG TAB ONE; +ATORVASTATIN CA20 MG PO; +DIPHENHYDRAMINE HCL 25 MG CAP ONE; +FENTANYL CITRATE/PF 100MCG/2 ML INJ ONE; +HEPARIN SOD/SOD CHLORIDE 2,000 ML ONE; +LIDOCAINE HCL 2% LOCAL 20 ML VIAL ONE; +MIDAZOLAM HCL 2 MG/2 ML VIAL ONE; +PROTAMINE SULFATE 10 MG/ML 5 ML VIAL ONE; +SILDENAFIL CITR25 MG PO; +SODIUM CHLORIDE 0.9% 100 ML ONE; +SODIUM CHLORIDE 0.9% 1000ML 1,000 ML ONE
--- NOTE | 2020-03-03 14:04 | NUR ---
1404pm RECEIVING NOTE TRACK LABORER RECOVERY DEPT............................................................... Bedside report received from Evan DAVID. Identifierx2. Alert oriented and appropriate, PERRLA, respirations even and unlabored to room air. Pulses x4 extremities equal and strong. Pedal pulses PT/DP X4 and Doppler and marked. Cap fill brisk < 3 sec. Decrease air TR bands Rt Pedal and Rt Radial No gross issues romo,pallor pressure or dysrhythmia. Skin warm and dry integrity appears D/I. IV 20g to left ac and 100cchr Protamine competed. Presents healthy w/o s/s of infiltration or complaint. Abdomen soft and supple. pt offered toileting, denies need to urinate or defecate. No personal affects with patient. No Family at bedside Stormy son to arrive for 4pm dc.Pt verbalizes understanding of POC. Currently w/o complaint of pain or need. ds/mateo
--- NOTE | 2020-03-03 15:00 | NUR ---
1500p PEDAL COMPRESSION REMOVAL NOTE: Initial Cuff volume 13 cc 1500p -3cc Removed No hematoma/bleeding noted with normal neurovascular function. 1515p -5cc Removed No hematoma/ bleeding noted with normal neurovascular function. 1530p -5cc Removed No hematoma/bleeding noted with normal neurovascular function. Air removal completed. Stasis achieved sterile 2x2,Tegaderm, Coban dressing No hematoma, bleeding noted with normal neurovascular function. emmie/mateo. Wrist splint in place. Pt instructed on POC. Emmie/Mateo Addendum: 03/03/20 at 1721 by Sulema Mills RN AMEND PEDAL NOTE 15cc in band no splint reminder in place post just Tegaderm and 4x4 dressing NO gross issues pain pallor pressure or dysrhythmia. sheila
--- NOTE | 2020-03-03 15:05 | NUR ---
1505p RADIALCOMPRESSION REMOVAL NOTE: Initial Cuff volume 13 cc 1500p -3cc Removed No hematoma/bleeding noted with normal neurovascular function. 1515p -5cc Removed No hematoma/ bleeding noted with normal neurovascular function. 1530p -5cc Removed No hematoma/bleeding noted with normal neurovascular function. Air removal completed. Stasis achieved sterile 2x2,Tegaderm, Coban dressing No hematoma, bleeding noted with normal neurovascular function. wrist reminder in place,aware to remove with am shower. ds/rn
--- NOTE | 2020-04-28 08:53 | Operative Report ---
DATE OF PROCEDURE: 03/03/2020 SURGEON: Nasir Gar MD INDICATIONS: Peripheral arterial disease. COMPLICATIONS: None. RECOMMENDATIONS: Dual antiplatelet therapy staged left superficial femoral artery intervention. PROCEDURES PERFORMED: 1. Ultrasound-guided access in the right radial and right posterior tibial arteries. 2. Abdominal aortogram. 3. Bilateral lower extremity angiograms. 4. Bilateral third ordered catheter placement right radial artery to bilateral common femoral artery. 5. Atherectomy and drug-coated balloon angioplasty of the right femoral artery. 6. Secondary thrombectomy of the right femoral artery. 7. Right radial and right posterior tibial artery TR band placement. DESCRIPTION OF PROCEDURE: Access obtained in the right radial artery using ultrasound guidance. Catheter was advanced. Abdominal aorta was widely patent. Bilateral femoral arteries were cannulated (3rd order catheter placement, 80% bilateral femoral artery stenosis). A decision was made to intervene on the right femoral arteries. The access was then obtained in the right posterior tibial artery and a 6-Guinean sheath was placed. Heparin was medications for anticoagulation. Directional atherectomy using HawkOne was performed. Large amounts of visible thrombus, which manual aspiration was needed. Balloon angioplasty with a 6 mm IN.PACT drug coated balloon was performed excellent end result, three-vessel runoff, no complications. Wire and guide sheath were removed. TR band applied both sites. The patient discharged home same day. Nasir Gar MD KSB/MODL /[id number]
== END | disposition home or self-care (01) ==
LOC: CATH LAB 11:05
PROVIDERS: ATTEND Internal Medicine Interventional Cardiology
DX: I70.203 Unspecified atherosclerosis of native arteries of extremities, bilateral legs (principal); I25.118 Atherosclerotic heart disease of native coronary artery with other forms of angina pectoris; I10 Essential (primary) hypertension; E78.00 Pure hypercholesterolemia, unspecified; E11.59 Type 2 diabetes mellitus with other circulatory complications; E11.3519 Type 2 diabetes mellitus with proliferative diabetic retinopathy with macular edema, unspecified eye; Z01.812 Encounter for preprocedural laboratory examination; Z11.59 Encounter for screening for other viral diseases; Z79.02 Long term (current) use of antithrombotics/antiplatelets; Z79.82 Long term (current) use of aspirin; Z79.84 Long term (current) use of oral hypoglycemic drugs
CPT/HCPCS: 36415 ×2; 37186; 37225; 75625; 76937; 80053; 82948; 85025; 87635; C1714; C1769; C2623; J2001; J2250; J2720; J3010; J7030; J7050; 36247; 37224; 75716; 99152; 99153; C1894; U0002

== ENCOUNTER → 2020-03-11 | Day surgery (SDC) | payer MEDICARE, OTHER ==
[2020-03-06 10:45] LABS: BASOPHILS % 0.5 % (0.0-1.0); EOSINOPHILS # (AUTO) 0.1 (0.0-0.4); EOSINOPHILS % 1.6 % (0.0-6.0); HEMATOCRIT 40.3 % (38.2-49.6); HEMOGLOBIN 13.7 g/dL (14.0-18.0); LYMPHOCYTES # (AUTO) 1.5 (1.0-3.2); LYMPHOCYTES % 17.4 % (18.0-39.1); MEAN CORPUSCULAR HEMOGLOBIN 33.2 pg (28-32); MEAN CORPUSCULAR VOLUME 97.6 fL (81-99); MONOCYTES # (AUTO) 0.5 (0.2-0.8); MONOCYTES % 6.4 % (4.4-11.3); NEUTROPHILS # (AUTO) 6.2 (2.1-6.9); NEUTROPHILS % 73.9 % (38.7-80.0); PLATELET COUNT 263 x10e3/uL (140-360); RED BLOOD COUNT 4.13 x10e6/uL (4.3-5.7); RED CELL DISTRIBUTION WIDTH 11.9 % (11.7-14.4)
[2020-03-06 11:11] LABS: ALANINE AMINOTRANSFERASE 24 IU/L (0-55); ALBUMIN 3.9 g/dL (3.5-5.0); ALKALINE PHOSPHATASE 65 IU/L (40-150); ANION GAP 14.6 mmol/L (8-16); BLOOD UREA NITROGEN 16 mg/dL (7-26); BUN/CREATININE RATIO 16 (6-25); CALCIUM 9.7 mg/dL (8.4-10.2); CARBON DIOXIDE 26 mmol/L (22-29); CHLORIDE 103 mmol/L (98-107); CREATININE, SERUM 0.98 mg/dL (0.72-1.25); EST GLOMERULAR FILTRATION RATE > 60 ML/MIN (60-); GLUCOSE 276 mg/dL (74-118); POTASSIUM 4.6 mmol/L (3.5-5.1); SODIUM 139 mmol/L (136-145)
[2020-03-11] VITALS (9 sets, daily range): BP systolic 98–160; BP diastolic 61–78
[~2020-03-11] VITALS: Ht 162.6 cm; Wt 68.0 kg
[~2020-03-11] MED LIST changes: +HEPARIN SOD (PORCINE) 1000 UNIT/ML 30ML ONE; +IOPAMIDOL 300MG/ML 100 ML INFUS..BTL IV ONE; +NITROGLYCERIN/D5W 200 MCG/ML 250 ML ONE; -SODIUM CHLORIDE 0.9% 100 ML ONE; +SODIUM CHLORIDE 0.9% 50ML 50 ML ONE
--- NOTE | 2020-03-11 11:10 | NUR ---
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 Bedside report received from Ary DAVID. Identifierx2. Alert oriented and appropriate, PERRLA, respirations even and unlabored to room air. Pulses x4 extremities equal and strong. Pedal pulses PT/DP X4. Cap fill brisk < 3 sec. Rt groin site dry and intact, No gross issues pain, Skin warm and dry integrity appears D/I IV 20g to presents healthy w/o s/s of infiltration or complaint. Abdomen soft and supple. pt offered toileting, denies need to urinate or defecate. No personal affects with patient. Family at bedside. Pt and family verbalizes understanding of POC.Denies CP or SOB Monitor 1degree,av block Currently w/o complaint of pain or need. Housesupv informed awaiting bed disposition. Echo in process. Diet tray ordered.sheila Addendum: 03/11/20 at 1352 by Sulema Mills RN [id number] error in RECEIVING NOTE ENTRY WRONG CHART sheila
--- NOTE | 2020-03-11 11:45 | NUR ---
pt in CCL10, prepped for procedure. Alert oriented and appropriate, PERRLA, respirations even and unlabored to room air. left pedals doppler only, skin blanching slightly , rashmi cap fill, pt/co burning sensation to pad of foot and left big toe. right pedals palpable weak. describing similar pain in right foot as left. Skin warm and dry integrity appears intact in general. IV 20g to left hand x1 by TU RN started and presents healthy w/o s/s of infiltration or complaint. . Abdomen soft and supple. pt offered toileting, denies need to urinate or defecate. Personal affects with patient. Family contact available. Pt verbalizes understanding of POC. 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 bed low and locked, side rails up x2 and call light at side. Awaiting for physician arrival -[facility] [place]
--- NOTE | 2020-03-11 13:20 | NUR ---
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 Bedside report received from JOANN. Identifierx2. Alert oriented and appropriate, PERRLA, respirations even and unlabored to room air. Pulses x4 extremities equal and strong. Pedal pulses PT/DP [id number] and marked. Cap fill brisk < 3 sec. Left pedal approach No gross issues pain,pallor,pressure or dysrhythmia. Skin warm and dry integrity appears lD/I IV 20g to left hand, presents healthy w/o s/s of infiltration or complaint. Abdomen soft and supple. pt offered toileting, denies need to urinate or defecate. No personal affects with patient. 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 Pt verbalizes understanding of POC. Currently w/o complaint of pain or need. emmie/joann
--- NOTE | 2020-03-11 14:00 | NUR ---
1400 spoke sith Leslye Son will arrive at 3pm for dc home. Remain stable TR air reduction scheduled 3pm ds/rn
--- NOTE | 2020-03-11 14:30 | NUR ---
1430p PEDAL COMPRESSION REMOVAL NOTE: Initial Cuff volume xx cc 1430p -3cc Removed No hematoma/bleeding noted with normal neurovascular function. 1500p -5cc Removed No hematoma/ bleeding noted with normal neurovascular function. 1515p -5cc Removed No hematoma/bleeding noted with normal neurovascular function. Air removal completed. Stasis achieved sterile 2x2,Tegaderm, Coban dressing No hematoma, bleeding noted with normal neurovascular function. Wrist splint in place. Pt instructed on POC. Ds/Rn
--- NOTE | 2020-03-11 15:00 | NUR ---
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 left pedal access assessed for s/s of complication and presence of hematoma. Skin warm, dry, no discolor, and pulses present. IV removed from left hand. Distal tip appears intact. VS WNL. Pt denies pain, sob, or need at this time. Family(Leslye/sadia teaching) at car. Review of discharge paperwork and follow up instructions. verbalized understanding. Pt to wheelchair and transported to front of hospital. Transferred to private vehicle under own strength w/o incident with DC paperwork in hand. - ds/rn
--- NOTE | 2020-03-11 20:55 | Operative Report ---
DATE OF PROCEDURE: 03/11/2020 SURGEON: Nasir Gar MD INDICATIONS: Peripheral arterial disease, claudication, critical limb ischemia. PROCEDURES PERFORMED: 1. Ultrasound-guided access in the left dorsalis pedis artery with sheath placement. 2. Conscious sedation, 65 minutes. 3. Third-order catheter placement from the left dorsalis pedis artery to the left iliac artery with unilateral extremity angiogram. 4. Atherectomy and drug-coated balloon angioplasty of the left femoral artery. 5. Secondary thrombectomy of left femoral artery. 6. Deployment of left foot closure device. COMPLICATIONS: None. RECOMMENDATIONS: Dual antiplatelet therapy for life. DESCRIPTION OF PROCEDURE: Access obtained in the left dorsalis pedis artery using ultrasound guidance. A 6-Spanish sheath was placed. Heparin was administered for anticoagulation. 80% stenosis of the left femoral artery was noted. Catheter was advanced to the left iliac artery and exchanged over a wire. Atherectomy using a Hawk One device was performed with large amounts of physical thrombus, for which manual aspiration and secondary thrombectomy was needed. Balloon angioplasty with a 5 mm balloon drug-coated with excellent end result, three-vessel runoff, no complications. Left foot closure device applied. The patient discharged home the same day. Nasir Gar MD KSB/MODL /[id number]
== END | disposition home or self-care (01) ==
LOC: CATH LAB 11:25
PROVIDERS: ATTEND Internal Medicine Interventional Cardiology
DX: E11.51 Type 2 diabetes mellitus with diabetic peripheral angiopathy without gangrene (principal); I25.118 Atherosclerotic heart disease of native coronary artery with other forms of angina pectoris; I10 Essential (primary) hypertension; E11.59 Type 2 diabetes mellitus with other circulatory complications; Z79.84 Long term (current) use of oral hypoglycemic drugs; E11.3519 Type 2 diabetes mellitus with proliferative diabetic retinopathy with macular edema, unspecified eye; E78.00 Pure hypercholesterolemia, unspecified; Z79.82 Long term (current) use of aspirin; Z11.59 Encounter for screening for other viral diseases
CPT/HCPCS: 36415; 37186; 37225; 75710; 76937; 80053; 85025; 87635; C1714; C1887; C1894; C2623 ×2; J1644; J2001; J2250; J2720; J3010; J7030; Q9967; 36247; 37224; 99152

== ENCOUNTER → 2021-04-20 | Outpatient (CLI) | payer MEDICARE ==
[~2021-04-20] MED LIST changes: -ALPRAZOLAM 0.5 MG TAB ONE; -DIPHENHYDRAMINE HCL 25 MG CAP ONE; -FENTANYL CITRATE/PF 100MCG/2 ML INJ ONE; -HEPARIN SOD (PORCINE) 1000 UNIT/ML 30ML ONE; -HEPARIN SOD/SOD CHLORIDE 2,000 ML ONE; -IOPAMIDOL 300MG/ML 100 ML INFUS..BTL IV ONE; -LIDOCAINE HCL 2% LOCAL 20 ML VIAL ONE; -MIDAZOLAM HCL 2 MG/2 ML VIAL ONE; -NITROGLYCERIN/D5W 200 MCG/ML 250 ML ONE; -PROTAMINE SULFATE 10 MG/ML 5 ML VIAL ONE; +REGADENOSON 0.4 MG/5 ML SYR IV ONE; -SODIUM CHLORIDE 0.9% 1000ML 1,000 ML ONE; -SODIUM CHLORIDE 0.9% 50ML 50 ML ONE
== END ==
LOC: NM 08:52
PROVIDERS: ATTEND Nurse Practitioner Family
DX: I20.8 Other forms of angina pectoris (principal)
CPT/HCPCS: 78452; 93017; A9502; J2785